=== PATIENT | female | born 1960 | race American Indian/Alaskan Native ===

== ENCOUNTER 2016-12-24 18:27 | Emergency (ER) | payer MEDICAID, OTHER ==
[2016-12-24 18:34] VITALS: BMI 34.0
[2016-12-24 19:51] VITALS: PULSE 84; O2SAT 99
[2016-12-24 19:58] LABS: BASO # 0.1 K/uL (0.0-0.2); BASO % 1.3 % (0.0-2.0); EOS # 0.1 K/uL (0.0-0.7); EOS % 0.9 % (0.0-4.0); HEMATOCRIT 38.3 % (34.0-47.0); LYMPH # 2.2 K/uL (1.0-4.3); LYMPH % 28.8 % (20.0-40.0); MEAN CELL VOLUME 83.7 fL (81.0-99.0); MEAN CORPUSCULAR HEMOGLOBIN 27.2 pg (27.0-31.0); MEAN CORPUSCULAR HGB CONC 32.4 g/dL (33.0-37.0); MEAN PLATELET VOLUME 9.5 fL (7.2-11.7); MONO # 0.6 K/uL (0.0-0.8); MONO % 8.3 % (0.0-10.0); RED CELL DISTRIBUTION WIDTH 13.5 % (11.5-14.5); WHITE BLOOD COUNT 7.6 K/uL (4.8-10.8)
--- NOTE | 2016-12-24 20:02 | C.PDOC ---
History Of Present Illness 56 year old patient, with a past medical history of anxiety, hypertension, hypercholesterolemia, hyperthyroidism, depression, diabetes, DVT, and gall bladder disease, presents to the emergency department complaining of a sudden onset of vertigo today. Patient denies numbness, weakness, chest pain, palpations, shortness of breath, nausea, vomiting, or loss of consciousness. Time Seen by Provider: 12/24/16 19:20 Chief Complaint (Nursing): Dizziness/Lightheaded History Per: Patient History/Exam Limitations: no limitations Onset/Duration Of Symptoms: Sudden Onset (today) Current Symptoms Are (Timing): Still Present Fall Associated With With Symptoms: No Severity: Mild Pain Scale Rating Of: 3 Recent travel outside of the [place]: No Past Medical History Reviewed: Historical Data, Nursing Documentation, Vital Signs Vital Signs: Last Vital Signs Temp 98 F 12/24/16 19:44 Pulse 84 12/24/16 19:44 Resp 20 12/24/16 19:44 BP 154/96 H 12/24/16 19:44 Pulse Ox 99 12/24/16 21:17 - Medical History PMH: Anxiety, Depression, Diabetes, Deep Vein Thrombosis (with [place] Filter ), Gall Bladder Disease, HTN, Hypercholesterolemia, Hyperthyroidism Surgical History: Cholecystectomy (Laparoscopically), Endoscopy (Colonoscopy) - [facility] Procedures CLOSED ENDOSCOPIC BIOPSY OF LARGE INTESTINE (06/27/14) CLOSED [PERCUTANEOUS] [NEEDLE] BIOPSY OF LUNG (06/27/14) ESOPHAGOGASTRODUODENOSCOPY [EGD] W/CLOSED BIOPSY (06/27/14) LAPAROSCOPIC CHOLECYSTECTOMY (05/17/14) PLICATION OF VENA CAVA (06/27/14) Family History: States: Unknown Family Hx - Social History Hx Tobacco Use: No Hx Alcohol Use: No Hx Substance Use: No - Immunization History Hx Tetanus Toxoid Vaccination: No Hx Influenza Vaccination: Yes Hx Pneumococcal Vaccination: No Review Of Systems Except As Marked, All Systems Reviewed And Found Negative. Cardiovascular: Negative for: Chest Pain, Palpitations Respiratory: Negative for: Shortness of Breath Gastrointestinal: Negative for: Nausea, Vomiting Neurological: Positive for: Dizziness, Other (loss of consciousness). Negative for: Weakness, Numbness Physical Exam - Physical Exam Appears: Non-toxic, No Acute Distress Skin: Warm, Dry Head: Atraumatic, Normacephalic Eye(s): bilateral: PERRL, EOMI, Other ((+) lateral nystagmus bilaterally (-) retinal bleed) Ear(s): Bilateral: Normal Nose: Normal Oral Mucosa: Moist Throat: Normal Neck: Normal ROM, Supple Chest: Symmetrical Cardiovascular: Rhythm Regular Respiratory: Normal Breath Sounds, No Rales, No Rhonchi, No Wheezing Gastrointestinal/Abdominal: Soft, No Tenderness, No Guarding, No Rebound Back: Normal Inspection, No CVA Tenderness Extremity: Normal ROM Neurological/Psych: Oriented x3, Normal Speech, Normal Cognition, Normal Cranial Nerves, Cerebellar Signs, Normal Motor, Normal Sensation Gait: Steady ED Course And Treatment - Laboratory Results Result Diagrams: 12/24/16 19:49 12/24/16 19:49 ECG: Interpreted By Me, Viewed By Me ECG Rhythm: Sinus Rhythm ECG Interpretation: Normal Interpretation Of ECG: No acute ST/T wave changes. normal axis Rate From EC (bpm) O2 Sat by Pulse Oximetry: 99 (RA) Pulse Ox Interpretation: Normal Progress Note: Plan: -Head CT. -EKG. -Antivert Disposition Counseled Patient/Family Regarding: Diagnosis - Disposition Referrals: [facility] [Outside] Disposition: HOME/ ROUTINE Disposition Time: 21:17 Condition: STABLE Prescriptions: Meclizine [Antivert] 25 mg PO Q6 #30 tab Instructions: Vertigo (ED), Dizziness (ED) - POA Present On Arrival: None - Clinical Impression Clinical Impression: Dizziness, Vertigo, late effect of cerebrovascular disease, Diabetes - Scribe Statement The provider has reviewed the documentation as recorded by the Scribe Cyndi Rogers All medical record entries made by the Scribe were at my direction and personally dictated by me. I have reviewed the chart and agree that the record accurately reflects my personal performance of the history, physical exam, medical decision making, and the department course for this patient. I have also personally directed, reviewed, and agree with the discharge instructions and disposition.
[2016-12-24 20:05] LABS: CHLORIDE 99 mmol/L (98-107); SODIUM 138 mmol/L (132-148)
[2016-12-24 20:07] LABS: AST/SGOT 26 U/L (14-36); BILIRUBIN,TOTAL 0.3 mg/dL (0.2-1.3); CARBON DIOXIDE 24 mmol/L (22-30); GFR AFRICAN-AMERICAN > 60
[2016-12-24 20:08] LABS: ALB/GLOB RATIO 1.3 (1.0-2.1); ALKALINE PHOSPHATASE 81 U/L (38-126); ALT/SGPT 41 U/L (9-52); BLOOD UREA NITROGEN 11 mg/dL (7-17); CALCIUM 9.4 mg/dl (8.6-10.4); GLUCOSE,RANDOM 139 mg/dL (65-105); TOTAL PROTEIN 7.6 g/dL (6.3-8.3)
--- NOTE | 2016-12-24 20:52 | CT ---
EXAM: CT Head Without Intravenous Contrast. CLINICAL HISTORY: 56 years old, female; Pain; Headache; Headache not specified TECHNIQUE: Axial computed tomography images of the head/brain without intravenous contrast. This CT exam was performed using one or more of the following dose reduction techniques: automated exposure control, adjustment of the mA and/or kV according to patient size, and/or use of iterative reconstruction technique. EXAM DATE/TIME: 12/24/2016 7:20 PM COMPARISON: No relevant prior studies available. FINDINGS: BRAIN: Focal areas of low density are seen in the basal ganglia bilaterally, most compatible with bilateral old/chronic lacunar infarcts. Diffuse, mild, age-related cortical atrophy and ventriculomegaly. No significant acute abnormality identified. No acute hemorrhage seen within the brain. No acute extra-axial fluid collections visualized. No evidence of significant mass effect within the brain. Normal rice-white matter differentiation. VENTRICLES: See above. BONES/JOINTS: No acute fractures or other acute bony abnormality noted. SOFT TISSUES: No acute abnormality of the visualized soft tissues is seen. SINUSES: Visualized paranasal sinuses appear clear. MASTOID AIR CELLS: Mastoid air cells appear clear. IMPRESSION: - No acute findings seen within the brain. - See above for remaining findings.
[2016-12-24 21:37] VITALS: BP 134/88; RESP 18; TEMP 97.9
--- NOTE | 2016-12-27 07:59 | CARD ---
APPROVED REPORT EKG Measurement Heart [id number] <Conclusion> Normal sinus rhythm Normal ECG
== END 2016-12-24 21:31 | disposition home or self-care (01) ==
LOC: C.ER 18:27
DX: R42 Dizziness and giddiness (principal); I69.998 Other sequelae following unspecified cerebrovascular disease; I10 Essential (primary) hypertension; E11.9 Type 2 diabetes mellitus without complications

== ENCOUNTER 2017-04-22 18:34 | Emergency (ER) | payer MEDICAID ==
[2017-04-22 18:35] VITALS: BMI 34.0
[2017-04-22 18:56] VITALS: TEMP 98.1
[2017-04-22] MEDS ORDERED: Sodium Chloride 0.9% 1,000 ML IV ONE (19:35)
[2017-04-22 19:46] LABS: BASO # 0.1 K/uL (0.0-0.2); BASO % 0.7 % (0.0-2.0); EOS # 0.1 K/uL (0.0-0.7); EOS % 0.8 % (0.0-4.0); HEMOGLOBIN 12.5 g/dL (11.0-16.0); MEAN CELL VOLUME 83.7 fL (81.0-99.0); MEAN CORPUSCULAR HGB CONC 32.3 g/dL (33.0-37.0); MONO # 0.6 K/uL (0.0-0.8); MONO % 6.5 % (0.0-10.0); RBC 4.62 Mil/uL (3.80-5.20); WHITE BLOOD COUNT 8.8 K/uL (4.8-10.8)
[2017-04-22] MEDS ORDERED: Sodium Chloride 0.9% 1,000 ML ONE (19:46)
[2017-04-22 19:54] LABS: ALBUMIN 3.9 g/dL (3.5-5.0)
[2017-04-22 19:56] LABS: GFR AFRICAN-AMERICAN > 60; GFR NON-AFRICAN AMERICAN > 60
[2017-04-22 19:57] LABS: ALB/GLOB RATIO 1.3 (1.0-2.1); ALT/SGPT 38 U/L (9-52); AST/SGOT 21 U/L (14-36); BLOOD UREA NITROGEN 12 mg/dL (7-17); CALCIUM 9.5 mg/dl (8.6-10.4)
[2017-04-22 20:44] LABS: HCG,QUALITATIVE URINE NEGATIVE (NEGATIVE)
--- NOTE | 2017-04-22 20:48 | C.PDOC ---
History Of Present Illness 56 y/o female presents to emergency department with c/o near syncopal episode while walking around outside in hot weather earlier today. Notes brief LOC and states she hit the back of her head on the ground. Patient reports she has had similar episodes in the past; many prior evaluations for dizziness with negative head CT on 12/24/16. Denies headache, nausea, vomiting, extremity weakness or numbness, or other complaints at this time. Time Seen by Provider: 04/22/17 19:30 Chief Complaint (Nursing): Syncope History Per: Patient History/Exam Limitations: no limitations Onset/Duration Of Symptoms: Hrs Current Symptoms Are (Timing): Still Present Activity At Onset Of Symptoms: Walking Seizure Or Post-ictal Symptoms: None Past Medical History Reviewed: Historical Data, Nursing Documentation, Vital Signs Vital Signs: Last Vital Signs Temp 98.1 F 04/22/17 18:48 Pulse 66 04/22/17 18:48 Resp 16 04/22/17 18:48 BP 122/69 04/22/17 18:48 Pulse Ox 100 04/22/17 21:05 - Medical History PMH: Anxiety, Depression, Diabetes, Deep Vein Thrombosis (with [place] Filter ), Gall Bladder Disease, HTN, Hypercholesterolemia, Hyperthyroidism Surgical History: Cholecystectomy (Laparoscopically), Endoscopy (Colonoscopy) - [facility] Procedures CLOSED ENDOSCOPIC BIOPSY OF LARGE INTESTINE (06/27/14) CLOSED [PERCUTANEOUS] [NEEDLE] BIOPSY OF LUNG (06/27/14) ESOPHAGOGASTRODUODENOSCOPY [EGD] W/CLOSED BIOPSY (06/27/14) LAPAROSCOPIC CHOLECYSTECTOMY (05/17/14) PLICATION OF VENA CAVA (06/27/14) Family History: States: Unknown Family Hx - Social History Hx Tobacco Use: No Hx Alcohol Use: No Hx Substance Use: No - Immunization History Hx Tetanus Toxoid Vaccination: No Hx Influenza Vaccination: Yes Hx Pneumococcal Vaccination: No Review Of Systems Except As Marked, All Systems Reviewed And Found Negative. Constitutional: Negative for: Fever, Chills Cardiovascular: Negative for: Chest Pain, Palpitations Respiratory: Negative for: Cough, Shortness of Breath, Wheezing Gastrointestinal: Negative for: Nausea, Vomiting Skin: Positive for: Other (contusion posterior scalp) Neurological: Positive for: Dizziness. Negative for: Weakness, Numbness, Headache Physical Exam - Physical Exam Appears: Non-toxic, No Acute Distress Skin: Normal Color, Warm, Dry Head: Normacephalic, No Laceration, Other (mild contusion, occiput) Eye(s): bilateral: Normal Inspection, PERRL, EOMI Ear(s): Bilateral: Normal Nose: Normal Oral Mucosa: Moist Tongue: No Bite Neck: No Midline Cervical Tenderness, No Paracervical Tenderness, Supple Chest: Symmetrical, No Tenderness Cardiovascular: Rhythm Regular, No Murmur Respiratory: Normal Breath Sounds, No Rales, No Rhonchi, No Wheezing Gastrointestinal/Abdominal: Soft, No Tenderness, No Guarding, No Rebound Back: Normal Inspection Extremity: Normal ROM, Capillary Refill (< 2 sec. ) Neurological/Psych: Oriented x3, Normal Speech, Normal Cognition, Normal Cranial Nerves ED Course And Treatment - Laboratory Results Result Diagrams: 04/22/17 19:39 04/22/17 19:39 Lab Interpretation: Normal (ua neg.) Urine POC: Negative O2 Sat by Pulse Oximetry: 100 (RA) Pulse Ox Interpretation: Normal Progress Note: EKG and labs ordered. Treated with Tylenol and IVFs. ice pack to occiput Reevaluation Time: 21:06 Reassessment Condition: Improved Medical Decision Making Medical Decision Making: minor scalp contusion, neuro normal, no head CT indicated. Disposition Doctor Will See Patient In The: Office Counseled Patient/Family Regarding: Studies Performed, Diagnosis - Disposition Disposition: HOME/ ROUTINE Disposition Time: 21:07 Condition: GOOD - Clinical Impression Clinical Impression: Vasovagal syncope - Scribe Statement The provider has reviewed the documentation as recorded by the Nicholas Davis Provider Attestation: All medical record entries made by the Nicholas were at my direction and personally dictated by me. I have reviewed the chart and agree that the record accurately reflects my personal performance of the history, physical exam, medical decision making, and the department course for this patient. I have also personally directed, reviewed, and agree with the discharge instructions and disposition.
[2017-04-22 20:59] LABS: URINE BACTERIA RARE (<OCC); URINE BILIRUBIN NEGATIVE (NEGATIVE); URINE BLOOD NEGATIVE (NEGATIVE); URINE CLARITY Hazy (Clear); URINE COLOR Yellow (YELLOW); URINE GLUCOSE (UA) NORMAL (Normal); URINE LEUKOCYTE ESTERASE NEG Leu/uL (Negative); URINE NITRATE NEGATIVE (NEGATIVE); URINE PROTEIN NEGATIVE (NEGATIVE); URINE UROBILINOGEN NORMAL mg/dL (0.2-1.0)
--- NOTE | 2017-04-22 21:05 | C.PDOC ---
Time Seen by Provider: 04/22/17 19:30 Chief Complaint (Nursing): Syncope Past Medical History Vital Signs: Last Vital Signs Temp 98.1 F 04/22/17 18:48 Pulse 74 04/22/17 21:18 Resp 18 04/22/17 21:18 BP 137/77 04/22/17 21:18 Pulse Ox 96 04/22/17 21:18 - Medical History PMH: Anxiety, Depression, Diabetes, Deep Vein Thrombosis (with [place] Filter ), Gall Bladder Disease, HTN, Hypercholesterolemia, Hyperthyroidism Denies: Chronic Kidney Disease Surgical History: Cholecystectomy (Laparoscopically), Endoscopy (Colonoscopy) Denies: Pacemaker - [facility] Procedures CLOSED ENDOSCOPIC BIOPSY OF LARGE INTESTINE (06/27/14) CLOSED [PERCUTANEOUS] [NEEDLE] BIOPSY OF LUNG (06/27/14) ESOPHAGOGASTRODUODENOSCOPY [EGD] W/CLOSED BIOPSY (06/27/14) LAPAROSCOPIC CHOLECYSTECTOMY (05/17/14) PLICATION OF VENA CAVA (06/27/14) Family History: States: Unknown Family Hx - Social History Hx Tobacco Use: No Hx Alcohol Use: No Hx Substance Use: No - Immunization History Hx Tetanus Toxoid Vaccination: No Hx Influenza Vaccination: Yes Hx Pneumococcal Vaccination: No ED Course And Treatment - Laboratory Results Result Diagrams: 04/22/17 19:39 04/22/17 19:39 O2 Sat by Pulse Oximetry: 100 Disposition Doctor Will See Patient In The: Office Counseled Patient/Family Regarding: Studies Performed, Diagnosis - Disposition Referrals: [facility] [Outside] [facility] [Outside] Disposition: HOME/ ROUTINE Disposition Time: 19:10 Condition: GOOD Additional Instructions: keep well hydrated during the Summer months! Follow-up in our outpatient clinic as needed. Instructions: Syncope (ED) - Clinical Impression Clinical Impression: Vasovagal syncope
[2017-04-22 21:19] VITALS: BP 137/77; PULSE 74; RESP 18
[2017-04-23 00:27] VITALS: O2SAT 96
--- NOTE | 2017-04-23 13:06 | CARD ---
APPROVED REPORT EKG Measurement Heart [id number] <Conclusion> Normal sinus rhythm Normal ECG
== END 2017-04-22 21:18 | disposition home or self-care (01) ==
LOC: C.ER 18:34
DX: R55 Syncope and collapse (principal)
CPT/HCPCS: 80053; 80320; 81001; 84703; 85025; 93005; 96360; 99285; J7040

== ENCOUNTER 2017-08-30 16:47 | Emergency (ER) | payer MEDICAID ==
[2017-08-30 16:47] VITALS: BMI 34.0
--- NOTE | 2017-08-30 17:07 | C.PDOC ---
History Of Present Illness RECUR NEAR SYNCOPE [employer]. PS HAS NOT BEEN EATING LIKE USUAL SINCE YESTERDAY DUE TO "PREPARING FOR THANKSGIVING". ONSET WHILE BENT OVER IN FRONT OF OVEN. NO CP, PALP. CURRENTLY CO "FEELING WEAK BUT NOT BAD BEFORE". COMPLIANT W MEDS PMH including DM, DVT, Neuropathy, Arthritis, DKA, Gastric Bypass EXAM NEG Time Seen by Provider: 08/30/17 16:56 Chief Complaint (Nursing): Weakness/Neurological Deficit History Per: Patient History/Exam Limitations: no limitations Onset/Duration Of Symptoms: Sudden Onset Past Medical History Reviewed: Historical Data, Nursing Documentation, Vital Signs Vital Signs: Last Vital Signs Temp 99 F 08/30/17 17:01 Pulse 60 08/30/17 18:44 Resp 18 08/30/17 18:44 BP 135/76 08/30/17 18:44 Pulse Ox 99 08/30/17 18:58 - Medical History PMH: Anxiety, Depression, Diabetes, Deep Vein Thrombosis (with [place] Filter ), Gall Bladder Disease, HTN, Hypercholesterolemia, Hyperthyroidism Surgical History: Cholecystectomy (Laparoscopically), Endoscopy (Colonoscopy) - [place] [facility] Procedures CLOSED ENDOSCOPIC BIOPSY OF LARGE INTESTINE (06/27/14) CLOSED [PERCUTANEOUS] [NEEDLE] BIOPSY OF LUNG (06/27/14) ESOPHAGOGASTRODUODENOSCOPY [EGD] W/CLOSED BIOPSY (06/27/14) LAPAROSCOPIC CHOLECYSTECTOMY (05/17/14) PLICATION OF VENA CAVA (06/27/14) Family History: States: No Known Family Hx - Social History Hx Tobacco Use: No Hx Alcohol Use: No Hx Substance Use: No - Immunization History Hx Tetanus Toxoid Vaccination: No Hx Influenza Vaccination: Yes Hx Pneumococcal Vaccination: No Review Of Systems Except As Marked, All Systems Reviewed And Found Negative. Constitutional: Positive for: Weakness. Negative for: Fever, Chills Cardiovascular: Negative for: Chest Pain, Palpitations Respiratory: Negative for: Shortness of Breath Physical Exam - Physical Exam Appears: Non-toxic, No Acute Distress Skin: Warm, Dry, No Rash Head: Atraumatic, Normacephalic Eye(s): bilateral: Normal Inspection, PERRL, EOMI Oral Mucosa: Moist Cardiovascular: Rhythm Regular, No Murmur Respiratory: Normal Breath Sounds, No Rales, No Rhonchi, No Stridor, No Wheezing Gastrointestinal/Abdominal: Normal Exam, Soft, No Tenderness, No Guarding, No Rebound Extremity: Normal ROM, No Swelling Neurological/Psych: Oriented x3, Normal Speech, Normal Motor, Normal Sensation ED Course And Treatment - Laboratory Results Result Diagrams: 08/30/17 17:32 08/30/17 17:32 O2 Sat by Pulse Oximetry: 99 (RA) Pulse Ox Interpretation: Normal - Radiology CXR: Interpreted by Me, Viewed By Me CXR Interpretation: Yes: No Acute Disease Progress - Re-Evaluation Re-evaluation Note: 08/30/17 18:52 FEELS BETTER VSS. TOLERATING PO 08/30/17 19:52 AMBUL WO DIFF. VSS FEELS BETTER - Data Reviewed Data Reviewed: Lab, Diagnostic imaging Medical Decision Making Medical Decision Making: PLAN: * CXR * EKG * CBC * BMP * Urinalysis * Lactated Ringers IV Disposition Counseled Patient/Family Regarding: Studies Performed, Diagnosis, Need For Followup - Disposition Referrals: YOUR,PMD [Other] Disposition: HOME/ ROUTINE Disposition Time: 19:57 Condition: IMPROVED Forms: [place] [facility] (Tajik) - Clinical Impression Clinical Impression: Near syncope - Scribe Statement The provider has reviewed the documentation as recorded by the Scribe Gissel Ayers Provider Attestation: All medical record entries made by the Milesibe were at my direction and personally dictated by me. I have reviewed the chart and agree that the record accurately reflects my personal performance of the history, physical exam, medical decision making, and the department course for this patient. I have also personally directed, reviewed, and agree with the discharge instructions and disposition.
[2017-08-30] MEDS ORDERED: Lactated Ringer's 1,000 ML IV ONE (17:23)
[2017-08-30 17:36] LABS: BASO # 0.1 K/uL (0.0-0.2); BASO % 1.3 % (0.0-2.0); EOS # 0.1 K/uL (0.0-0.7); EOS % 0.8 % (0.0-4.0); HEMATOCRIT 40.6 % (34.0-47.0); LYMPH # 2.7 K/uL (1.0-4.3); LYMPH % 32.5 % (20.0-40.0); MEAN CELL VOLUME 84.1 fL (81.0-99.0); MEAN CORPUSCULAR HEMOGLOBIN 27.3 pg (27.0-31.0); MEAN CORPUSCULAR HGB CONC 32.5 g/dL (33.0-37.0); MONO # 0.8 K/uL (0.0-0.8); MONO % 9.2 % (0.0-10.0); RED CELL DISTRIBUTION WIDTH 12.7 % (11.5-14.5); WHITE BLOOD COUNT 8.3 K/uL (4.8-10.8)
[2017-08-30] MEDS ORDERED: Lactated Ringer's 1,000 ML ONE (17:44)
[2017-08-30 17:47] LABS: CALCIUM 9.4 mg/dl (8.6-10.4); POTASSIUM 3.9 mmol/L (3.6-5.2)
[2017-08-30 18:40] LABS: RBC URINE 1 /hpf (0-3); URINE BACTERIA RARE (<OCC); URINE BILIRUBIN NEGATIVE (NEGATIVE); URINE BLOOD NEGATIVE (NEGATIVE); URINE COLOR Yellow (YELLOW); URINE GLUCOSE (UA) NORMAL (Normal); URINE KETONE NEGATIVE (NEGATIVE); URINE LEUKOCYTE ESTERASE NEG Leu/uL (Negative); URINE PROTEIN NEGATIVE (NEGATIVE); URINE UROBILINOGEN NORMAL mg/dL (0.2-1.0); WBC URINE 4 /hpf (0-5)
[2017-08-30 20:05] VITALS: BP 125/77; PULSE 72; RESP 19; TEMP 97.8; O2SAT 98
--- NOTE | 2017-08-31 09:30 | RAD ---
PROCEDURE: CHEST RADIOGRAPH, 1 VIEW HISTORY: DIZZY COMPARISON: None available. FINDINGS: LUNGS: Chronic nodular density is unchanged at the inferior right lung zone posteriorly which is partially pleural in location and has previously been delete biopsied and March 2014. PLEURA: No pneumothorax or pleural fluid seen. Also as above. CARDIOVASCULAR: Cardiac silhouette remains upper limits normal size. No pulmonary vascular derangement identified. OSSEOUS STRUCTURES: No significant abnormalities. VISUALIZED UPPER ABDOMEN: Normal. OTHER FINDINGS: None. IMPRESSION: Interval acute cardiopulmonary disease. A nodular mass at the inferior right lung zone simulates an infiltrate once again, biopsied in 2013. See separate chest CT examination 06/29/2014.
== END 2017-08-30 20:13 | disposition home or self-care (01) ==
LOC: C.ER 16:47
DX: R55 Syncope and collapse (principal); I10 Essential (primary) hypertension; E11.9 Type 2 diabetes mellitus without complications
CPT/HCPCS: 71010; 80048; 81001; 82948; 85025; 99285; J7120

== ENCOUNTER 2018-12-13 11:42 | Outpatient (CLI) | payer MEDICAID | END 2018-12-13 11:43 | disposition home or self-care (01) | LOC: C.MAMMO 11:42 | DX: Z12.31 Encounter for screening mammogram for malignant neoplasm of breast (principal) ==